=== PATIENT | male | born 1985 | race Caucasian/White ===

== ENCOUNTER 2023-10-06 17:45 | Emergency (ER) | payer OTHER, SELFPAY ==
[2023-10-06] VITALS (14 sets, daily range): BP systolic 110–130; BP diastolic 72–79; PULSE 78–94; RESP 11–20; O2SAT 96–99; BMI 27.7
--- NOTE | 2023-10-06 18:38 | ECG_ITS ---
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
--- NOTE | 2023-10-06 18:40 | ED.MEDCLEAR1 ---
HPI - Medical Clearance General Chief complaint: Medical Clearance Stated complaint: Medical Clearance Time Seen by Provider: 10/06/23 18:20 Source: patient Mode of arrival: walk-in Limitations: no limitations History of Present Illness HPI Narrative: Patient is a 38-year-old male who presents to the emergency department from [facility] for the evaluation of Feeling dizzy and pale. He was presenting to [facility] to be checked in for alcohol and drug rehab. The staff said that he was pale and needed to be evaluated in the ER. His alcohol level was 0.03. He admits to injecting cocaine earlier today in his leg and is also concerned about a red swollen area on his forearm where he has injected heroin and drugs in the past. He denies any fevers, vomiting. He states he is concerned he may be dehydrated. He has not been eating and drinking well the last several days. Related Information Previous Rx's ?Medication ?Instructions ?Recorded cephalexin 500 mg capsule 500 mg PO Q8H 10 days #30 caps 10/06/23 naproxen sodium 550 mg tablet 550 mg PO BID PRN pain #10 tabs 10/06/23 Allergies Allergy/AdvReac Type Severity Reaction Status Date / Time No Known Drug Allergies Allergy Verified 10/06/23 18:03 Review of Systems ROS Constitutional Denies: fever or chills Ears, nose, mouth, and throat Denies: throat pain or nasal congestion Cardiovascular Denies: chest pain Respiratory Denies: shortness of breath or cough Gastrointestinal Denies: nausea, vomiting or diarrhea Musculoskeletal Denies: back pain Integumentary/Breast Denies: rash Neurological Denies: headache Hematologic/Lymphatic Denies: easy bruising or easy bleeding Exam Narrative Exam Narrative: Gen.: Awake, alert, in no distress Head: Normocephalic, atraumatic ENT: Moist mucous membranes Respiratory: No respiratory distress, lungs clear bilaterally Cardio: Regular rate and rhythm Gastrointestinal: Abdomen is soft, nondistended and nontender to palpation Extremities: Moves extremities equally, Minimal induration and redness noted to the right volar forearm with 2 small pustular healing areas to the right hand consistent with IV drug use injection sites. No circumferential swelling or firmness of the forearm. 2+ right radial pulse. No red streaking. Psych: Normal mood and affect Neuro: No focal neuro deficit Skin: Warm, dry, intact Constitutional Vital Signs, click to edit/add: Last Vital Signs Pulse 94 H 10/06/23 18:05 Resp 16 10/06/23 18:05 BP 130/79 10/06/23 18:05 Pulse Ox 97 10/06/23 18:05 Course Vital Signs Vital signs: Vital Signs Pulse Rate 94 H 10/06/23 18:05 Respiratory Rate 16 10/06/23 18:05 Blood Pressure 130/79 10/06/23 18:05 Pulse Oximetry 97 10/06/23 18:05 Pulse Rate 94 H 10/06/23 18:05 Respiratory Rate 16 10/06/23 18:05 Blood Pressure 130/79 10/06/23 18:05 Pulse Oximetry 97 10/06/23 18:05 MDM - Medical Clearance MDM Narrative Medical decision making narrative: Exam is consistent with phlebitis of the right upper extremity, likely secondary to drug injection at this site. Patient with stable EKG, stable vital signs. He was treated with IV fluids, Toradol. He will be placed on NSAIDs and Keflex for home. The remainder of his labs are unremarkable. He request something to eat prior to discharge and was given crackers and juice which she tolerated with no difficulty. Keep up fluids at recovery center and return to the ER if symptoms change or worsen. Medical Records Attestation: I reviewed the patient's medical records. Lab Data Attestation: I reviewed the patient's lab results. Labs: Lab Results 10/06/23 Range/Units 19:03 WBC 6.2 (4.0-11.0) 10^3/uL RBC 3.89 L (4.70-6.10) 10^6/uL Hgb 10.5 L (14.0-18.0) g/dL Hct 33.5 L (42.0-54.0) % MCV 86.1 (80.0-94.0) fL MCH 27.0 (25.9-34.0) pg MCHC 31.3 (29.9-35.2) g/dL RDW 13.9 (11.0-15.0) % Plt Count 236 (150-450) 10^3/uL MPV 9.0 L (9.5-13.5) fL Neut % (Auto) 68.0 (43.0-75.0) % Lymph % (Auto) 24.3 (20.5-60.0) % [place] % (Auto) 4.7 (1.7-12.0) % Eos % (Auto) 1.9 (0.9-7.0) % Baso % (Auto) 0.5 (0.2-2.0) % Neut # (Auto) 4.2 (1.4-6.5) 10^3/uL Lymph # (Auto) 1.5 (1.2-3.8) 10^3/uL [place] # (Auto) 0.3 (0.3-0.8) 10^3/uL Eos # (Auto) 0.1 (0.0-0.7) 10^3/uL Baso # (Auto) 0.0 (0.0-0.1) 10^3/uL Abs Immat Gran (auto) 0.04 H (0.00-0.03) 10^3/uL Imm/Tot Granulo (auto) 0.6 H (0.0-0.5) % Sodium 135 L (136-145) mmol/L Potassium 4.2 (3.5-5.1) mmol/L Chloride 100 (98-107) mmol/L Carbon Dioxide 30.2 (21.0-32.0) mmol/L Anion Gap 9.0 BUN 12.0 (7.0-18.0) mg/dL Creatinine 0.68 L (0.70-1.30) mg/dL Est GFR ( Amer) >60 (>=60) Est GFR (Non-Af Amer) >60 (>=60) BUN/Creatinine Ratio 17.6 Glucose 108 H (74-106) mg/dL Lactate 1.4 (0.4-2.0) mmol/L Calcium 8.7 (8.5-10.1) mg/dL Magnesium 1.7 L (1.8-2.4) mg/dL Total Bilirubin 0.3 (0.2-1.0) mg/dL AST 11 L (15-37) U/L ALT 15 L (16-63) U/L Alkaline Phosphatase 96 (46-116) U/L Troponin I High Sens <4.0 L (4.0-76.1) pg/mL Total Protein 7.6 (6.4-8.2) g/dL Albumin 3.0 L (3.4-5.0) g/dL Globulin 4.6 g/dL Albumin/Globulin Ratio 0.7 TSH 0.691 (0.358-3.740) uIU/mL Ethanol Quant <3 mg/dL ECG Data Attestation: I personally reviewed and interpreted this ECG as follows: (Normal sinus rhythm at a rate of 78, no acute ST elevation or ectopy. EKG reviewed by attending physician) Discharge Plan Discharge Stand Alone Forms: Portal Instructions Chief Complaint: Medical Clearance Clinical Impression: Generalized weakness, Phlebitis Patient Disposition: Home, Self-Care Time of Disposition Decision: 20:02 Condition: Good Prescriptions / Home Meds: New cephalexin 500 mg capsule 500 mg PO Q8H 10 Days Qty: 30 0RF naproxen sodium 550 mg tablet 550 mg PO BID PRN (Reason: pain) Qty: 10 0RF Print Language: Turkmen Instructions: Cellulitis (ED), Superficial Thrombophlebitis (ED), Weakness (ED) Referrals: Physician,Non-Staff, MD [Primary Care Provider] - 1 week
[2023-10-06] MEDS: 0.9 % SODIUM CHLORIDE 1,000 ML 999 ML IV (19:10)
[2023-10-06] MEDS: KETOROLAC TROMETHAMINE 30 MG/ML VIAL IVP (19:13)
[2023-10-06 19:17] LABS: Basophils Percent Auto 0.5 % (0.2-2.0); Eosinophils Absolute Auto 0.1 10^3/uL (0.0-0.7); Eosinophils Percent Auto 1.9 % (0.9-7.0); Hematocrit 33.5 % (42.0-54.0); Hemoglobin 10.5 g/dL (14.0-18.0); Immature Granulocytes Abs Auto 0.04 10^3/uL (0.00-0.03); Immature Granulocytes Pct Auto 0.6 % (0.0-0.5); Lymphocytes Absolute Auto 1.5 10^3/uL (1.2-3.8); Lymphocytes Percent Auto 24.3 % (20.5-60.0); Mean Corpuscular HGB Conc 31.3 g/dL (29.9-35.2); Mean Corpuscular Volume 86.1 fL (80.0-94.0); Monocytes Absolute Auto 0.3 10^3/uL (0.3-0.8); Monocytes Percent Auto 4.7 % (1.7-12.0); Neutrophils Absolute Auto 4.2 10^3/uL (1.4-6.5); Platelet Count 236 10^3/uL (150-450); Red Blood Count 3.89 10^6/uL (4.70-6.10); Red Cell Distribution Width 13.9 % (11.0-15.0); White Blood Count 6.2 10^3/uL (4.0-11.0)
[2023-10-06 19:33] LABS: Alanine Aminotransferase 15 U/L (16-63); Albumin Globulin Ratio 0.7; Alkaline Phosphatase 96 U/L (46-116); Aspartate Amino Transferase 11 U/L (15-37); BUN Creatinine Ratio 17.6; Bilirubin Total 0.3 mg/dL (0.2-1.0); Calcium 8.7 mg/dL (8.5-10.1); Carbon Dioxide 30.2 mmol/L (21.0-32.0); Chloride 100 mmol/L (98-107); Estimated GFR (African America >60 (>=60); Estimated GFR (Non-African Ame >60 (>=60); Globulin 4.6 g/dL; Glucose 108 mg/dL (74-106); Potassium 4.2 mmol/L (3.5-5.1); Sodium 135 mmol/L (136-145); Total Protein 7.6 g/dL (6.4-8.2)
[2023-10-06 19:42] LABS: Magnesium 1.7 mg/dL (1.8-2.4); Thyroid Stimulating Hormone 0.691 uIU/mL (0.358-3.740); Troponin I High Sensitivity <4.0 pg/mL (4.0-76.1)
[2023-10-06 19:43] LABS: Ethanol <3 mg/dL; Lactate/Lactic Acid 1.4 mmol/L (0.4-2.0)
[2023-10-06] MEDS: CEPHALEXIN 500 MG CAPSULE PO (20:27)
== END 2023-10-06 20:35 | disposition home or self-care (01) ==
PROVIDERS: Physician Assistant; Emergency Provider Emergency Medicine
DX: I80.8 Phlebitis and thrombophlebitis of other sites (principal); R53.1 Weakness; F14.90 Cocaine use, unspecified, uncomplicated; F11.90 Opioid use, unspecified, uncomplicated
CPT/HCPCS: 36415; 80053; 80307; 80320; 83605; 83735; 84443; 84484; 85025; 93005; 96361; 96374; 99285